=== PATIENT | female | born 1970 | race Caucasian/White ===

== ENCOUNTER 2020-07-22 18:45 | Emergency (ER) | payer OTHER ==
[~2020-07-22] VITALS: Ht 152.4 cm; Wt 57.1 kg
[2020-07-22 19:26] LABS: ABSOLUTE BASOPHILS 0.1 thou/uL (0.0-0.2); ABSOLUTE EOSINOPHILS 0.1 thou/uL (0.0-0.7); ABSOLUTE LYMPHOCYTES 2.3 thou/uL (0.8-5.3); ABSOLUTE MONOCYTES 0.7 thou/uL (0.0-1.2); ABSOLUTE NEUTROPHILS 4.4 thou/uL (1.6-8.1); BASOPHILS 1.8 %; EOSINOPHILS 0.7 %; HEMOGLOBIN 7.4 gm/dL (12.0-15.0); LYMPHOCYTES 30.3 %; MCH 20.5 pg (26.0-34.0); MCHC 29.7 g/dL (28.0-37.0); MONOCYTES 8.7 %; MPV 7.1 fl. (7.2-11.1); NUCLEATED RBCS 0 /100WBC; PLATELET COUNT* 383 thou/uL (150-400); POLYS 58.5 %; RBC 3.62 mil/uL (4.20-5.00); RDW-CV 19.3 % (10.5-14.5); URINE BILIRUBIN NEGATIVE (Negative); URINE BLOOD NEGATIVE (Negative); URINE CLARITY CLEAR; URINE COLOR YELLOW; URINE GLUCOSE-RANDOM NEGATIVE (Negative); URINE KETONES NEGATIVE (Negative); URINE LEUKOCYTES-REFLEX NEGATIVE (Negative); URINE PROTEIN NEGATIVE (Negative); URINE UROBILINOGEN 0.2 E.U./dl (0.2-1.0); WBC 7.6 thou/uL (4.0-11.0)
[2020-07-22 19:28] LABS: URINE NITRITE-REFLEX POSITIVE (Negative)
[2020-07-22 19:34] LABS: CALCIUM 8.4 mg/dL (8.5-10.1); CREATININE 0.9 mg/dL (0.6-1.3); POTASSIUM 3.8 mmol/L (3.5-5.1)
[2020-07-22 19:38] LABS: TOTAL BILIRUBIN 0.3 mg/dL (<0.1-1.0); TOTAL PROTEIN 8.4 g/dL (6.4-8.2)
[2020-07-22 20:17] LABS: BACTERIA-REFLEX >30 Many /HPF (None Seen); CASTS None Seen /LPF (None Seen); CRYSTALS None Seen /LPF (None Seen); MUCUS 4-6 Moderate strn/LPF (None Seen); SQUAMOUS 4-10 Moderate /LPF (0-3); URINE RBC 0-2 Rare /HPF (0-2); URINE WBC-REFLEX 0-5 Rare /HPF (0-5)
[2020-07-22 20:31] LABS: AMP/METHAMP Negative (Negative); ANISOCYTOSIS 1+; BARBITURATES Negative (Negative); BENZODIAZEPINES Negative (Negative); COCAINE Negative (Negative); HYPOCHROMASIA 3+; METHADONE Negative (Negative); MICROCYTES 3+; OPIATES Negative (Negative); PCP Negative (Negative); POIKILOCYTOSIS Occasional; POLYCHROMASIA 1+; THC Negative (Negative)
[2020-07-22] MEDS ORDERED: OMEPRAZOLE 20 M20 M1 PO (22:31)
[2020-07-22] MEDS ORDERED: NORCO 5-325 TA1 EAC2 PO (22:31)
[2020-07-22] MEDS ORDERED: KEFLEX500 M1 PO (22:52)
[2020-07-22 23:15] VITALS: BP 112/70
--- NOTE | 2020-07-23 09:41 | EKG ---
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
== END 2020-07-22 23:16 | disposition home or self-care (01) ==
LOC: M.ERS 18:45
PROVIDERS: Emergency Medicine; Nurse Practitioner Family
DX: D64.9 Anemia, unspecified (principal); N39.0 Urinary tract infection, site not specified; R10.13 Epigastric pain

== ENCOUNTER 2021-05-08 00:47 | Emergency (ER) | payer OTHER ==
[~2021-05-08] VITALS: Ht 149.9 cm; Wt 66.0 kg
[~2021-05-08 00:47] MED LIST: KEFLEX500 M1 PO; NORCO 5-325 TA1 EAC2 PO; OMEPRAZOLE 20 M20 M1 PO
[2021-05-08 03:03] VITALS: BP 117/73
--- NOTE | 2021-05-08 09:26 | EKG ---
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
== END 2021-05-08 03:04 | disposition left against medical advice (07) ==
LOC: M.ERS 00:47
DX: T50.901A Poisoning by unspecified drugs, medicaments and biological substances, accidental (unintentional), initial encounter (principal); R42 Dizziness and giddiness; Y92.89 Other specified places as the place of occurrence of the external cause